=== PATIENT | male | born 1960 | race Caucasian/White ===

== ENCOUNTER → 2018-02-05 | Outpatient (CLI) | payer OTHER ==
[~2018-02-05] MED LIST: MIDAZOLAM INJ 2 MG/2 ML VIAL (J2250) As Ordered
[2018-02-05 12:37] LABS: BEDSIDE GLUCOSE 111 MG/DL (70-105)
== END ==
LOC: M SDC 12:02
DX: M50.21 Other cervical disc displacement, high cervical region (principal); M50.221 Other cervical disc displacement at C4-C5 level; M50.223 Other cervical disc displacement at C6-C7 level; M25.78 Osteophyte, vertebrae; M48.02 Spinal stenosis, cervical region; I10 Essential (primary) hypertension; E11.9 Type 2 diabetes mellitus without complications; K21.9 Gastro-esophageal reflux disease without esophagitis; Z88.0 Allergy status to penicillin; Z88.8 Allergy status to other drugs, medicaments and biological substances; Z79.899 Other long term (current) drug therapy; Z79.84 Long term (current) use of oral hypoglycemic drugs
CPT/HCPCS: 99156

== ENCOUNTER → 2019-10-09 | Outpatient (CLI) | payer OTHER ==
--- NOTE | 2019-10-09 09:18 | REP ---
RIGHT FOOT SERIES: FOUR VIEWS. HISTORY: Mass. Lump appearing in the medial instep times 1 week. FINDINGS: There is a large os naviculare with hypertrophic spurring at the articulation with the main body of the navicular bone. This could account for a medial midfoot lump. There is plantar calcaneal spurring. No bony destructive lesion is seen. A small os perineum is noted as well. There is mild osteoarthritic spurring at the IP joint of the great toe. IMPRESSION: No acute bony abnormality. Fairly large os naviculare with degenerative spurring at its articulation with the main body of the navicular bone in the medial midfoot. Heel spurring. Electronically Signed by Armando Mir MD 10/09/2019 10:05 A
== END ==
LOC: M WUC 08:33
PROVIDERS: ATTEND Nurse Practitioner Family
DX: R22.41 Localized swelling, mass and lump, right lower limb (principal)

== ENCOUNTER → 2021-02-09 | Outpatient (REF) | payer OTHER | LOC: M SMT 14:58 | PROVIDERS: ATTEND Nurse Practitioner Family | DX: N39.0 Urinary tract infection, site not specified (principal) ==

== ENCOUNTER → 2021-02-18 | Outpatient (CLI) | payer OTHER ==
--- NOTE | 2021-02-18 21:05 | REPVR ---
PROCEDURE INFORMATION: Exam: CT Maxillofacial Without Contrast, Sinus Exam date and time: 02/18/2021 3:03 PM Age: 60 years old Clinical indication: Face pain; Additional info: Facial pain TECHNIQUE: Imaging protocol: CT Maxillofacial without contrast. Focus on the sinuses. Radiation optimization: All CT scans at this facility use at least one of these dose optimization techniques: automated exposure control; mA and/or kV adjustment per patient size (includes targeted exams where dose is matched to clinical indication); or iterative reconstruction. COMPARISON: MRI-Spine,Cervical without con 02/05/2018 12:41 PM FINDINGS: Frontal sinuses: Normal. No air-fluid levels. Ethmoid air cells: Normal. No air-fluid levels. Sphenoid sinuses: Normal. No air-fluid levels. Maxillary sinuses: Normal. No air-fluid levels. Ostiomeatal units are patent. Nasal cavity/Septum: Unremarkable. Orbital cavity: Orbits are normal. Globes are unremarkable. Bones/joints: Unremarkable. Soft tissues: Unremarkable. IMPRESSION: Unremarkable sinuses. Electronically signed by: Merritt Goldman On 02/18/2021 21:04:31 PM
== END ==
LOC: M RAD 14:43
PROVIDERS: ATTEND Otolaryngology
DX: G50.1 Atypical facial pain (principal)

== ENCOUNTER → 2021-03-28 | Outpatient (CLI) | payer OTHER ==
[~2021-03-28] MED LIST changes: +DILT180C28; +HYDR-3490; +LEFL1TAB4; +LOSA100T50; +MELO15TA28; +METF-838; -MIDAZOLAM INJ 2 MG/2 ML VIAL (J2250) As Ordered; +OMEP-221; +ROSU10TA6
== END ==
LOC: M LABSMTC 10:05
PROVIDERS: ATTEND Anesthesiology
DX: Z01.812 Encounter for preprocedural laboratory examination (principal); Z20.822 Contact with and (suspected) exposure to COVID-19

== ENCOUNTER → 2021-04-02 | Outpatient (CLI) | payer OTHER | LOC: M LABSMTC 09:55 | PROVIDERS: ATTEND Anesthesiology | DX: Z20.828 Contact with and (suspected) exposure to other viral communicable diseases (principal); Z11.52 Encounter for screening for COVID-19 ==

== ENCOUNTER 2021-04-07 06:11 | Day surgery (SDC) | payer OTHER ==
[~2021-04-07] VITALS: Ht 172.7 cm; Wt 70.4 kg
[~2021-04-07 06:11] MED LIST changes: +LIDOCAINE 1% MDV 20ML VIAL SQ PRN; +LR 1,000 ML IV ONE
[2021-04-07] MEDS ORDERED: propofoL 200 MG/20 ML VIAL As Ordered ONE (07:28)
[2021-04-07] MEDS ORDERED: LIDOCAINE 2% 100MG/5ML SDV (FOR ANES.) As Ordered ONE (07:28)
[2021-04-07] MEDS ORDERED: MIDAZOLAM INJ 2MG/2ML VIAL (J2250 PER 1MG) As Ordered ONE (07:28)
[2021-04-07] MEDS ORDERED: fentaNYL 100 MCG/2 ML INJECTION (J3010) As Ordered ONE (07:28)
[2021-04-07] MEDS ORDERED: BUPIVACAINE HCL 0.25% 30ML VIAL As Ordered ONE (07:43)
[2021-04-07] MEDS ORDERED: LIDOCAINE 1% SDV 30ML VIAL As Ordered ONE (07:43)
--- NOTE | 2021-04-07 08:23 | ROOPDOC ---
[facility] Report Of Operation Report of Operation DATE OF PROCEDURE: 04/07/21 PREPROCEDURE DIAGNOSES: Elevated Prostate Specific Antigen (PSA). POSTPROCEDURE DIAGNOSES: Elevated PSA. PROCEDURE PERFORMED: Transrectal Ultrasound-guided Prostate Biopsy. SURGEON: Maribell Fox MD VP AD SALES WEST: None ANESTHESIA: Monitored Anesthesia Care (MAC). OPERATIVE INDICATIONS: This is a 60 year old male with an elevated PSA of 5.5, here for a prostate biopsy. DESCRIPTION OF PROCEDURE: The patient was brought to the operating room and MAC anesthesia was administered. He was then placed in the left lateral position. A transrectal ultrasound probe was placed into the rectum. A prostatic block was created with injection of 50% mixture of 1/4% Marcaine and 2% lidocaine below the left and right seminal vesicle each of the 5 mL. Subsequently the ultrasonologist measured the dimensions of the prostate and the volume was 17mL. Then 12 core biopsies of the prostate were obtained using a disposable biopsy gun, 6 each from the right and 6 from the left, 2 from the base, 2 from the mid zone and 2 from the apex. There were no complications and the patient tolerated the procedure well. He was taken to the recovery room in stable condition. ESTIMATED BLOOD LOSS: Approximately 5 mL. COMPLICATIONS: None. SPECIMENS REMOVED: Prostate biopsies. PLAN: The patient will follow up next week to discuss pathology results. MARIBELL FOX MD Apr 07, 2021 08:23
--- NOTE | 2021-04-07 08:38 | REP ---
INDICATION: PROSTATE BIOPSY. COMPARISON: None. TECHNIQUE: Transrectal prostate sonography. FINDINGS: Trans rectal prostate sonography demonstrates unremarkable seminal vesicles. Prostate gland is heterogeneous, with mild BPH changes.. No suspicious nodule seen. Glandular dimensions are measured at 4.1 x 2.1 x 3.9 cm with a calculated glandular volume of 17 ml. Transrectal sonographic guidance is provided to Dr. Lim who performed trans rectal ultrasound guided needle biopsy procedure. IMPRESSION: Transrectal prostate sonographic findings as above. <Electronically signed by Dirk Mir > 04/07/21 0800
[2021-04-07 08:40] VITALS: BP 153/76
== END 2021-04-07 08:44 | disposition home or self-care (01) ==
LOC: M SDC 06:11
PROVIDERS: ATTEND Urology
DX: C61 Malignant neoplasm of prostate (principal); I10 Essential (primary) hypertension; F41.9 Anxiety disorder, unspecified; R51.9 Headache, unspecified; M54.50 Low back pain, unspecified; Z79.899 Other long term (current) drug therapy; Z88.0 Allergy status to penicillin; Z88.1 Allergy status to other antibiotic agents
CPT/HCPCS: 55700; G0416; J2250; J3010

== ENCOUNTER → 2025-02-06 | Outpatient (CLI) | payer OTHER, MEDICARE ==
[~2025-02-06] MED LIST changes: -LEFL1TAB4; +LEFL20TA15; -LIDOCAINE 1% MDV 20ML VIAL SQ PRN; +LOSA100T46; -LOSA100T50; -LR 1,000 ML IV ONE; -OMEP-221; +OMEP40CA5; +PROHANCE 279.3MG/ML 15ML VIAL ONE; -ROSU10TA6; +ROSU10TA61
== END ==
LOC: M PLAIMG 12:19
PROVIDERS: ATTEND Urology
DX: C61 Malignant neoplasm of prostate (principal)
CPT/HCPCS: 72197; A9576

== ENCOUNTER 2025-02-18 06:06 | Day surgery (SDC) | payer OTHER, MEDICARE ==
[~2025-02-18] VITALS: Ht 172.7 cm; Wt 71.7 kg
[~2025-02-18 06:06] MED LIST changes: -PROHANCE 279.3MG/ML 15ML VIAL ONE
[2025-02-18] MEDS ORDERED: LIDOCAINE 2% 100 MG/5 ML SDV (FOR ANES.) As Ordered ONE (06:59)
[2025-02-18] MEDS ORDERED: MIDAZOLAM INJ 2 MG/2 ML VIAL As Ordered ONE (06:59)
[2025-02-18] MEDS: LR 1,000 ML IV SCH (07:04)
[2025-02-18] MEDS ORDERED: PHENYLephrine 500MCG 5ML (100MCG/ML) SYRINGE As Ordered ONE (07:51)
[2025-02-18] MEDS ORDERED: ONDANSETRON 4MG 2ML VIAL As Ordered ONE (07:51)
[2025-02-18] MEDS ORDERED: dexAMETHasone 4 MG/ML 1 ML VIAL As Ordered ONE (07:52)
[2025-02-18 08:10] VITALS: BP 111/55; TEMP 97; O2SAT 100
[2025-02-18] MEDS ORDERED: CIPR-249 PO (08:29)
== END 2025-02-18 08:28 | disposition home or self-care (01) ==
LOC: M SDC 06:06
PROVIDERS: ATTEND Urology
DX: C61 Malignant neoplasm of prostate (principal); E11.9 Type 2 diabetes mellitus without complications; I10 Essential (primary) hypertension; E78.00 Pure hypercholesterolemia, unspecified; Z79.899 Other long term (current) drug therapy; Z88.0 Allergy status to penicillin; Z79.84 Long term (current) use of oral hypoglycemic drugs; Z88.2 Allergy status to sulfonamides; Z88.1 Allergy status to other antibiotic agents; M45.9 Ankylosing spondylitis of unspecified sites in spine; L40.9 Psoriasis, unspecified
CPT/HCPCS: 55700; 76872; G0416; J1100; J2250; J2371; J2405; J2765; J3010

== ENCOUNTER → 2025-04-23 | Outpatient (CLI) | payer OTHER, MEDICARE ==
[~2025-04-23] MED LIST changes: +CIPR-249 PO
== END ==
LOC: M ONCR 09:30
PROVIDERS: ATTEND General Practice
DX: C61 Malignant neoplasm of prostate (principal); Z80.42 Family history of malignant neoplasm of prostate; Z88.0 Allergy status to penicillin; Z88.1 Allergy status to other antibiotic agents; Z88.2 Allergy status to sulfonamides; Z79.61 Long term (current) use of immunomodulator; Z79.84 Long term (current) use of oral hypoglycemic drugs; Z79.899 Other long term (current) drug therapy

== ENCOUNTER 2025-05-27 10:32 | Outpatient (RCR) | payer OTHER, MEDICARE ==
[~2025-05-27 10:32] MED LIST changes: -ROSU10TA61; +ROSU10TA90
[2025-06-01] MEDS ORDERED: SIME1CAP4 PO (11:09)
== END 2025-05-31 ==
LOC: M ONCR 10:32
PROVIDERS: ATTEND General Practice
DX: Z51.0 Encounter for antineoplastic radiation therapy (principal); C61 Malignant neoplasm of prostate

== ENCOUNTER → 2025-07-01 | Outpatient (RCR) | payer OTHER, MEDICARE ==
[~2025-07-01] MED LIST changes: +SIME1CAP4 PO; +TAMS1CAP17 PO
== END ==
LOC: M ONCR 06-01 10:35
PROVIDERS: ATTEND General Practice
DX: Z51.0 Encounter for antineoplastic radiation therapy (principal); C61 Malignant neoplasm of prostate